=== PATIENT | male | born 1955 | race Caucasian/White ===

== ENCOUNTER 2018-02-20 05:45 | Day surgery (SDC) | payer OTHER ==
[2018-02-20] MEDS ORDERED: LACTATED RINGERS 1,000 ML ONE (06:22)
--- NOTE | 2018-02-20 09:24 | OP ---
DATE OF PROCEDURE: 02/20/18 PREPROCEDURE DIAGNOSIS: 1. Surveillance for history of colonic polyps. Last colonoscopy was 6 years ago. POSTPROCEDURE DIAGNOSIS: 1. Colonic polyps. 2. Diverticulosis. 3. Internal hemorrhoids. PROCEDURE: 1. Colonoscopy with polypectomy. SURGEON: Iggy Shah MD. SEDATION: Monitored anesthesia care. ESTIMATED BLOOD LOSS: Less than 5 mL. PROCEDURE: Informed consent was obtained prior to sedation. The preprocedure cardiopulmonary assessment was satisfactory. The patient was brought to the Endoscopy Suite and placed in the left lateral decubitus position. The patient was then sedated by the anesthesia team. Digital rectal and perianal exams were normal. The tip of the Olympus colonoscope was inserted into the rectum and advanced under direct visualization to the cecum as identified by the presence of the appendiceal orifice and ileocecal valve. Intubation of the terminal ileum was successful. The terminal ileum was normal. Preparation of the colon was good. Upon reaching the ileum, the endoscope was slowly withdrawn from the patient with careful attention paid to the entire colonic mucosa for the identification of any flat polyps or small vascular lesions. In the cecum and proximal transverse colon, there were two polyps, ranging in size from 4 to 6 mm. These were resected with cold snare polypectomy and retrieved for pathology analysis. There was some scattered diverticulosis in the sigmoid colon. A retroflexed view of the anal verge showed small, non-bleeding internal hemorrhoids. The endoscope was then withdrawn from the patient and the procedure terminated. RECOMMENDATION: 1. Discharge the patient home with escort. 2. Resume regular diet. 3. Continue present medications. 4. Surveillance colonoscopy due in 5 years' time. #[id number] [facility]
[2018-02-20] MEDS ORDERED: LIDOCAINE 1% 10 ML VIAL INJ ONE (10:00)
[2018-02-20] MEDS ORDERED: PROPOFOL 200 MG/20 ML VIAL IV ONE (10:00)
[2018-02-20 13:57] VITALS: BP 137/80; TEMP 97.1; O2SAT 100
== END 2018-02-20 14:03 | disposition home or self-care (01) ==
LOC: AMB 05:45
PROVIDERS: ATTEND Internal Medicine Gastroenterology
DX: Z12.11 Encounter for screening for malignant neoplasm of colon (principal); D12.0 Benign neoplasm of cecum; D12.3 Benign neoplasm of transverse colon; K57.30 Diverticulosis of large intestine without perforation or abscess without bleeding; K64.8 Other hemorrhoids; K21.9 Gastro-esophageal reflux disease without esophagitis; I10 Essential (primary) hypertension; Z86.010 Personal history of colon polyps; Z79.899 Other long term (current) drug therapy